=== PATIENT | male | born 1970 | race Caucasian/White ===

== ENCOUNTER → 2018-12-26 09:10 | Outpatient (CLI) | payer OTHER, SELFPAY ==
[2018-12-26 09:59] LABS: Absolute Lymphocyte Count 1.13 X10^3/ul (0.83-4.51); Absolute Neutrophil Count 2.9 X10^3/uL (2.0-7.7); Basophil# 0.01 X10^3/uL; Basophil% 0.2 % (0-1); Eosinophil# 0.06 X10^3/uL; Eosinophils% 1.3 % (0-5); Hemoglobin 16.3 g/dl (13.0-16.5); Lymphocyte # 1.13 X10^3/ul (4.0); Lymphocyte % 24.6 % (19-41); Mean Corpuscular Hgb 30.6 pg (27.0-32.0); Mean Corpuscular Volume 90.1 fL (80-94); Mean Platelet Vol. 9.2 fl (6.2-12.0); Monocyte% 10.9 % (0-10); Neutrophil # 2.89 X10^3/uL (2.7-7.7); Neutrophil % 62.8 % (47-70); Platelet Count 168 K/mm3 (150-450); RBC Distribution Width CV 12.4 % (11.6-14.6); RBC Distribution Width SD 40.5 fl (35.1-43.9); Red Blood Count 5.33 M/mm3 (4.6-6.2); White Blood Count 4.6 K/mm3 (4.4-11.0)
[2018-12-26 10:03] LABS: POSITIVE COUNT NO; POSITIVE DIFFERENTIAL NO; POSITIVE MORPHOLOGY NO
[2018-12-26 10:45] LABS: ALB/GLOB Ratio 1.2 RATIO (0.9-2.4); AST(SGOT) 28 U/L (15-37); Alanine Aminotransfer ALT/SGPT 37 U/L (16-61); Alkaline Phosphatase 77 U/L (45-117); Anion Gap 4 (5-15); BUN 11 mg/dL (7-18); BUN/Creat Ratio 9.6 RATIO (10-20); Calcium,Total 8.8 mg/dL (8.5-10.1); Chloride 105 mmol/L (98-107); Cholesterol 183 mg/dL (200); Creatinine, Serum 1.15 mg/dL (0.70-1.30); EST Glomerular Filtration Rate 72 mL/min (>60); Est Glom Filt Rate - Afr Amer 87 mL/min (>60); Free T3 2.2 pg/mL (2.18-3.98); Globulin 3.2 g/dL (2.2-4.2); Glucose 98 mg/dL (74-106); High Density Lipoprotein 47 mg/dL; Potassium 4.6 mmol/L (3.5-5.1); Protein, Total 7.2 g/dL (6.4-8.2); Sodium Level 138 mmol/L (136-145); T4 Free Direct 1.14 ng/dL (0.76-1.46); Thyroid Stim Hormone (TSH) 0.63 uIU/mL (0.358-3.74); Triglycerides 65 mg/dL; Very Low Density Lipoprotein 13 mg/dL (5-40)
== END ==
PROVIDERS: Family Provider Family Medicine; PCP Family Medicine; Referring Provider Family Medicine; Visit Provider Family Medicine
DX: K76.0 Fatty (change of) liver, not elsewhere classified (principal); E03.9 Hypothyroidism, unspecified
CPT/HCPCS: 36415; 80053; 80061; 84439; 84443; 84481; 85025

== ENCOUNTER → 2019-04-01 12:08 | Outpatient (CLI) | payer OTHER, SELFPAY ==
[2019-04-01 12:11] LABS: Lyme Ab Screen Interpretation REF LAB
[2019-04-01 13:14] LABS: Erythrocyte Sedimentation Rate 1 mm/hr (0-15)
[2019-04-01 13:39] LABS: PTHIN 74.4 pg/mL (18.4-80.1); Vitamin B12 525 pg/mL (211-911); Vitamin D,25 Hydroxy 36.3 ng/mL (29.95-100.01)
[2019-04-01 13:46] LABS: CRP < 2.90 mg/L (0.0-3.0); Ferritin 83 ng/mL (26-388); Rheumatoid Factor < 10.0 IU/mL (<15)
[2019-04-02 13:07] LABS: Anti-Centromere B Ab <0.2 AI (0.0-0.9); Anti-Chromatin <0.2 AI (0.0-0.9); Anti-Jo <0.2 AI (0.0-0.9); Anti-Scleroderma-70 AB 4.4 AI (0.0-0.9); RNP Ab 0.3 AI (0.0-0.9); SJOGREN'S Anti-SS-A test < 0.2 AI (0.0-0.9); SJOGREN'S Anti-SS-B test < 0.2 AI (0.0-0.9); Smith Ab <0.2 AI (0.0-0.9)
[2019-04-02 16:07] LABS: PROEL- A/G Ratio 1.4 (0.7-1.7); PROEL- Albumin 3.9 g/dL (2.9-4.4); PROEL- Alpha-1 Globulin 0.2 g/dL (0.0-0.4); PROEL- Alpha-2 Globulin 0.6 g/dL (0.4-1.0); PROEL- Globulin, Total 2.8 g/dL (2.2-3.9); PROEL- TOTAL PROTEIN 6.7 g/dL (6.0-8.5)
[2019-04-03 11:27] LABS: Lyme Scn Total Ab w/Rflx <0.91 ISR (0.00-0.90)
[2019-04-03 12:49] LABS: Anti-dsDNA Ab <1 IU/mL (0-9)
== END ==
PROVIDERS: Family Provider Family Medicine; PCP Family Medicine; Referring Provider Family Medicine; Visit Provider Family Medicine
DX: R76.8 Other specified abnormal immunological findings in serum (principal); R20.2 Paresthesia of skin; E55.9 Vitamin D deficiency, unspecified
CPT/HCPCS: 36415; 82306; 82607; 82728; 82746; 83970; 84165; 85652; 86140; 86225; 86235; 86431; 86618

== ENCOUNTER 2019-04-22 08:15 | Emergency (ER) | payer OTHER, SELFPAY ==
[2019-04-22 08:17] VITALS: BP 137/80; PULSE 74; RESP 16; TEMP 36.2; O2SAT 99; BMI 34.0
--- NOTE | 2019-04-22 08:32 | EKG12_ITS ---
Test Reason : CP Blood Pressure : / mmHG Vent. Rate : 070 BPM Atrial Rate : 070 BPM P-R Int : 188 ms QRS Dur : 088 ms QT Int : 364 ms P-R-T Axes : 045 040 016 degrees QTc Int : 393 ms Normal sinus rhythm Normal ECG Confirmed by ROMAN ORTEGA ([id number]), production editor CRUZ MACHADO ([id number]) on 04/23/2019 2:37:20 PM Referred By: KALLI Confirmed By:ROMAN ORTEGA
--- NOTE | 2019-04-22 08:32 | CT_ITS ---
STUDY: CTA CHEST REASON FOR EXAM: Male, 48 years old. One-day history of left upper chest pain. Diaphoresis. RADIATION DOSAGE (If Supplied By Facility): CTDIvol = ( 19.65 ) mGy, DLP = ( 502.92 ) mGycm TECHNIQUE: The examination was performed with the intravenous administration of 100mL IV Isovue 370. Post-processing of the angiographic images was performed, with multiplanar reformation and 3D reconstruction. Individualized dose optimization techniques were used for this CT. COMPARISON: Comparison is made with prior study dated March 26, 2014. FINDINGS: Normal enhancement of the main pulmonary artery and right and left pulmonary arteries. Normal enhancement of the bilateral peripheral pulmonary arteries. There is no demonstrated pulmonary embolism. Normal thoracic aorta and visualized great vessels. There is no demonstrated aortic dissection. Normal heart and pericardium. Normal mediastinum. Normal hilar regions. Normal visualized trachea and bronchi. The lungs are well expanded. Minimal increased markings at the lung bases suggestive of bibasilar atelectasis and/or scarring Normal pleura. Normal chest wall structures. Normal osseous structures. Normal visualized upper abdomen. CT/CTA Chest W/WO Contrast IMPRESSION: Normal CTA chest examination, without a demonstrated pulmonary embolism or arterial dissection. Electronically Signed: Austin Harvey, at 9:45 EDT , Service support ,
[2019-04-22 08:51] LABS: Absolute Lymphocyte Count 0.97 X10^3/uL (0.83-4.51); Absolute Neutrophil Count 2.4 X10^3/uL (2.0-7.7); Basophil# 0.02 X10^3/uL; Basophil% 0.5 % (0-1); Eosinophil# 0.06 X10^3/uL; Eosinophils% 1.5 % (0-5); Hematocrit 44.7 % (40-54); Hemoglobin 15.3 g/dL (13.0-16.5); Lymphocyte # 0.97 X10^3/ul (4.0); Lymphocyte % 24.4 % (19-41); Mean Corp Hgb Conc 34.2 g/dL (32-36); Mean Corpuscular Hgb 31.2 pg (27.0-32.0); Mean Corpuscular Volume 91.2 fL (80-94); Mean Platelet Vol. 8.7 fl (6.2-12.0); Monocyte# 0.47 X10^3/uL; Monocyte% 11.8 % (0-10); NRBC Flagged by Analyzer 0 % (0-5); Neutrophil # 2.44 X10^3/uL (2.7-7.7); Neutrophil % 61.5 % (47-70); Platelet Count 144 K/mm3 (150-450); RBC Distribution Width CV 12.2 % (11.6-14.6); RBC Distribution Width SD 40.2 fl (35.1-43.9)
[2019-04-22 09:10] LABS: Anion Gap 6 (5-15); BUN 15 mg/dL (7-18); BUN/Creat Ratio 12.1 RATIO (10-20); Calcium,Total 8.6 mg/dL (8.5-10.1); Chloride 109 mmol/L (98-107); Creatinine, Serum 1.24 mg/dL (0.70-1.30); EST Glomerular Filtration Rate 66 mL/min (>60); Est Glom Filt Rate - Afr Amer 80 mL/min (>60); Estimated Creatinine Clearance 72.85 ml/min; Glucose 118 mg/dL (74-106); Sodium Level 143 mmol/L (136-145)
[2019-04-22] MEDS: Aspirin 81 MG TAB.CHEW 162 MG PO (09:32)
[2019-04-22 09:34] VITALS: BP 120/80; PULSE 66; RESP 15; O2SAT 100
[2019-04-22 12:00] VITALS: BP 104/57; PULSE 61; RESP 16; O2SAT 98
--- NOTE | 2019-04-22 12:28 | ED.VISSUMM ---
- ER Visit Summary Date of Service: 04/22/19 Chief Complaint: Chest pain History of Present Illness: The patient is a 48 M with chest pain that started today. This is left-sided and radiates into his left arm and jaw. Worse with breathing. Associated with some sweats and nausea this morning. Patient never had this before. He had some pain and received a stress test years ago. This was unremarkable. His symptoms at that time were attributed to GERD. He is not having exertional symptoms. No history of ACS, PE, or dissection. He is being worked up for autoimmune diseases, scleroderma. He has a history of raynauds disease. Physical Examination: Afebrile and vital signs unremarkable. Patient is alert and oriented. In no acute distress. HEENT exam grossly unremarkable. Heart regular rate and rhythm. Lungs clear. Abdomen soft. Extremities nontender with no edema. Skin normal in color. Cranial nerves grossly intact. Moves all extremities. Test Results: EKG showed sinus rhythm rate of 70. No sign of acute ischemia or infarction pattern. White count 4.0 and platelets 144. He has had low white counts and platelets in the past. BMP unremarkable. Troponin normal. CTA was normal. No evidence of PE or aortic pathology. Emergency Department Course and Treatment: Patient seen on arrival. EKG as above. He was monitored. His work-up was unremarkable. With his history of autoimmune disease and radiation into his arm, I did obtain a CTA. His aorta was unremarkable. No PE. Patient declined pain medicine while awaiting results. He is low risk for ACS. He is appropriate for outpatient care. I did recheck his troponin at 3 hours which was unremarkable. No indication for hospitalization or inpatient stress testing. I am not sure what is causing the patient's pain. His work-up is unremarkable. He is low risk. He will need outpatient follow-up. He was advised to follow-up with his doctor. If he is unable or if he has new or worsening symptoms, he should return to the ED for admission and/or further care. Treatment Plan: As above Disposition: Discharge Impression: 1. Chest pain unclear etiology This note was generated with [employer] software. It may contain incorrect words, spelling, and punctuation that were not noted in review of the chart prior to signing ED Disposition - Plan for ED Patient: Referrals: Felix Kimble MD [Primary Care Provider] -
--- NOTE | 2019-04-22 12:32 | ED.DEP ---
ED Disposition - Plan for ED Patient: Instructions: CHEST PAIN, Uncertain Cause Referrals: Felix Kimble MD [Primary Care Provider] -
[2019-04-22 12:48] VITALS: BP 112/61; PULSE 63; RESP 16; O2SAT 97
== END 2019-04-22 12:49 | disposition home or self-care (01) ==
LOC: ED 08:37
PROVIDERS: Emergency Provider Emergency Medicine; Family Provider Family Medicine; PCP Family Medicine
DX: R07.9 Chest pain, unspecified (principal); I73.00 Raynaud's syndrome without gangrene; R11.0 Nausea; K21.9 Gastro-esophageal reflux disease without esophagitis; Z79.899 Other long term (current) drug therapy
CPT/HCPCS: 71275; 80048; 84484; 85025; 93005; 99285; Q9967; A4216

== ENCOUNTER 2019-06-17 08:32 | Day surgery (SDC) | payer OTHER, SELFPAY ==
[2019-06-10 14:32] VITALS: BMI 34.0
[2019-06-17] VITALS (7 sets, daily range): BP systolic 84–130; BP diastolic 55–94; PULSE 62–76; RESP 16; TEMP 36.3–37.2; O2SAT 95–100; BMI 34.6
[2019-06-17] MEDS: Lactated Ringers 1,000 ML 100 ML IV (09:43)
--- NOTE | 2019-06-17 09:45 | IMM_PTH ---
PATIENT: JOHANNY ESCAMILLA LOC: [facility] U#:[id number] AGE/SX: 48/M ROOM: RE06/17/[address]: Dr. Catrachito Gonzales MD : 1970 BED: DIS: 06/17/2019 SPEC #: [id number] RECD: 06/17/19 14:52 STATUS: SANKET REAngel #: [id number] BERTRAM: 06/17/19 09:[address]: Catrachito Gonzales DEPT: IMMUNOHISTOCHEMISTRY RECD BY: Francine Bhat ENTERED: 06/17/19 14:52 SP TYPE: IMMUNO OTHR DR: Dr. Felix Kimble MD Tissues: B - Stomach, NOS Procedures: H Pylori (initial) PHYSICIAN & INSTITUTION [place] [id number] SPECIMEN INFORMATION: Tissue Source: B - Antral biopsy Clinical Info: Black tarry stool Specimen Number: [id number] CPT code: 68741 METHODOLOGY: Deparaffinized sections of prefer/formalin-fixed tissue or PAP/DQ stained slides are incubated with monoclonal/polyclonal antibodies/oligonucleotide probes. Localization is made via biotin free immunoperoxidase method. Appropriate controls are performed and reacted as expected. Results on target cell population are indicated in the following table: RESULTS: ANTIBODY / CLONE RESULT Block B H Pylori (polyclonal) negative These tests were developed and their performance characteristics determined by [facility]. They may not have been cleared or approved by the U.S. Food and Drug Administration. The FDA has determined that such clearance or approval is not necessary. INTERPRETATION: B. Antral biopsy: Negative for Helicobacter pylori organisms. AM:dede 06/18/19
--- NOTE | 2019-06-17 09:45 | EGD_PTH ---
PATIENT: JOHANNY ESCAMILLA LOC: EN U#:[id number] AGE/SX: 48/M ROOM: RE06/17/[address]: Dr. Catrachito Gonzales MD : 1970 BED: DIS: 06/17/2019 SPEC #: [id number] RECD: 06/17/19 12:12 STATUS: SANKET KRYSTLE #: [id number] BERTRAM: 06/17/19 09:[address]: Catrachito Gonzales DEPT: SURGICAL PATHOLOGY RECD BY: Veronica Saavedra ENTERED: 06/17/19 14:13 SP TYPE: EGD BIOPSY OT DR: Dr. Felix Kimble MD Tissues: A - Duodenum, NOS B - Gastric mucous membrane C - Esophagus, NOS D - Esophagus, NOS Procedures: Special Stain Group II Surgery Specimen Level IV Alcian Blue/PAS (control) HEADER OPERATION: Colonoscopy, EGD ([facility] [place]) PRE-OP DIAGNOSIS: Black tarry stool TISSUE SUBMITTED: A. Duodenum biopsy, B. Antral biopsy for H. pylori and histo, C. Distal esophagus biopsy, D. Mid esophagus biopsy MICROSCOPIC DIAGNOSIS A. Duodenum, biopsy: No pathologic change. B. Gastric antrum, biopsy: Mild chronic gastritis. See comment. C. Distal esophagus, biopsy: Focal changes of reflux. Gastroesophageal junctional mucosa with chronic and focal acute inflammation. No evidence of goblet cell metaplasia. See comment. D. Mid esophagus, biopsy: Fragments of benign squamous mucosa. No evidence of inflammation. AM:dede 06/18/19 COMMENT B. The results of immunohistochemistry for Helicobacter pylori will be reported separately ([id number]). C. Alcian blue/PAS stain with matched control supports the above diagnosis. MICROSCOPIC DESCRIPTION Slides are reviewed. GROSS DESCRIPTION A - Received in fixative is one container labeled with the patient's name and designated duodenum biopsy. The specimen consists of one irregular fragment of light menchaca soft tissue that measures 0.4 x 0.3 x 0.1 cm. The specimen is totally submitted in one cassette. B - Received in fixative is one container labeled with the patient's name and designated antral biopsy. The specimen consists of one irregular fragment of light menchaca soft tissue that measures 0.6 x 0.2 x 0.1 cm. The specimen is totally submitted in one cassette. C - Received in fixative is one container labeled with the patient's name and designated distal esophagus biopsy. The specimen consists of multiple irregular fragments of light menchaca soft tissue that in aggregate measure 0.8 x 0.7 x 0.1 cm. The specimen is totally submitted in one cassette. D - Received in fixative is one container labeled with the patient's name and designated mid esophagus biopsy. The specimen consists of two irregular fragments of light menchaca soft tissue that in aggregate measure 0.4 x 0.3 x 0.1 cm. The specimen is totally submitted in one cassette. / SJ:dede 06/17/19 TC: 3 CPT: 72340 x4, 49638
--- NOTE | 2019-06-17 09:49 | HP.PCM_ITS ---
Problem List (1) Melena Status: Acute History and Physical Date of Admission: 06/17/19 Intake Visit Reasons: Rectal Fissue/Black tarry stool [employer] Person Required: No Is patient in pain?: No Allergies No Known Allergies Allergy (Verified 04/22/19 08:19) Medications Levothyroxine [Synthroid] 150 mcg PO DAILY 07/27/13 [History Confirmed 06/10/19] Selenium 200 mg PO DAILY 04/22/19 [History Confirmed 06/10/19] opjaeuz-ntcpsvfez-yuvl tablet tab PO tab 06/10/19 [History] iodine 150 mcg tablet mcg PO tab 06/10/19 [History Confirmed 06/10/19] lactobacillus combination no.8 3 billion cell capsule 3,000 mmu cells PO DAILY 06/10/19 [History Confirmed 06/10/19] PFSH Medical History Abdominal pain (Acute) Blood in stool (Acute) Thyroid disease (Acute) Surgical History Hx of wisdom tooth extraction (Acute) Hx of vasectomy (Acute) History of tonsillectomy and adenoidectomy (Acute) History of esophagogastroduodenoscopy (EGD) (Acute) Family History Mother Arthritis Lung cancer Father Hypertension Grandmother Colon cancer Social History (Updated 06/10/19 @ 16:59 by Catrachito Gonzales MD) Smoking Status: Never smoker second hand exposure: No alcohol intake: current alcohol intake frequency: a few times a week Alcohol type: beer substance use type: does not use caffeine: Yes what type of physical activity do you participate in: none frequency: does not exercise HPI HPI HPI: JOHANNY ESCAMILLA, is a 48 M who presents to the office today for HPI HPI Surgical H&P: Yes HPI: JOHANNY ESCAMILLA, is a 48 M who presents to the office today for surgical consultation regarding episode of black tarry stool. The patient was referred by his primary care physician Dr. Felix Kimble and a written copy of my surgical consult recommendations will return to him. The patient notes that for prolonged period of time he has had a tearing sensation in his anus that he correlates with a fissure but he has never had a endoscopy/sigmoidoscopy/colonoscopy. Occasionally he will have bright red rectal bleeding. He goes on to state that Dr. Lawson Leyva previously performed a total of 3 previous upper endoscopies on him. There was some concern visually that he had Powers's esophagus but the biopsies by patient report did not show that. The patient goes on to state that he was previously H. pylori positive. The patient then went on a much reduced gluten diet and took probiotics and subsequently was relieved of his GERD symptoms. He has not had a upper endoscopy now in quite a period of time. He contacted Dr. Felix Kimble because he had an episode of very dark tarry stool following a recent bowel movement. This occurred one occasion. He otherwise does not have any abdominal pain. No fever chills or sweats. He goes on to state that his maternal grandmother did have colon cancer. He states that his father had multiple polyps identified on serial colonoscopies. As of April 22, 2019 his BUN was 15 and creatinine 1.24. At that time his white count was 4 hemoglobin 15.3 hematocrit 44.7 platelet count 144,000 slightly low. In addition there is some concerned about Benji's phenomenon and possible polyarthralgia. There is some ongoing attention to that. ROS General General: No weight change, appetite, fatigue, colon cancer, breast cancer or weakness HEENT HEENT: No difficulty swallowing, eye injury, eye surgery, swollen glands or hoarseness Endo Endocrine: Yes thyroid disease; no diabetes mellitus, thyroid cancer, Hair loss, heat intolerance or cold intolerance Skin Skin: No rash or changing moles Cardio Cardiovascular: No murmur, pacemaker, heart disease, atrial fibrillation, high blood pressure, heart attack, heart stent, palpitations, shortness of breat with exertion or chest pain Psych Psychiatric: No depression, anxiety or hearing voices Resp Respiratory: No shortness of breath, No sleep apnea, No cough, No COPD, No asthma, No emphysema, No wheezing Gastro Gastrointestinal: Yes abdominal pain, No nausea or vomiting, No diarrhea, No constipation, Yes blood in stool, No acid reflux, No hemorrhoids, No ulcers, No gallbladder problem, Yes black,tarry stools (1 time last week) Marco Hematologic: No blood thinners, No blood disorders, No bleeding, No anemia, No blood clots Neuro Neurologic: No system reviewed and no additional complaints, except as docu, No as per HPI, No abnormal walking, No abnormal hearing, No abnormal movements, No abnormal speech, No behavioral changes, No burning sensations, No confusion, No seizure-like activity, No unsteadiness, No dizziness, No localized weakness, No frequent falls, No headache(s), No lack of coordination, No loss of vision, No memory loss, No numbness, No other visual disturbances, No radiating pain, No restless legs, No sensory deficit, No fainting, No tingling, No tremor(s), No weakness, No other Exam Const General: cooperative, healthy appearing, comfortable, no acute distress Nutritional Appearance: overweight Orientation: alert, awake HENTX Head: normal to inspection Chest Chest palpation & inspection: normal inspection of the chest Resp Effort & Inspection: normal respiratory effort Auscultation: clear to auscultation bilaterally Cardio Rate: regular rate Rhythm: regular rhythm Heart Sounds: no murmurs GI Palpation: soft, no hepatosplenomegaly Auscultation: normal bowel sounds Musc Cervical Spine: normal cervical lordosis Skin General: no rashes or lesions noted Neuro Cognition: normal cognition Extrem General: no calf tenderness bilaterally Psych Affect: normal affect Assessment & Plan Problems 1. Melena K92.1 Plan 48-year-old gentleman. He is not on any anticoagulants. Intermittently over the years he has had some bright red rectal bleeding with what he feels is possibly an anal fissure. Recently had a solitary episode of dark tarry stools. This was one episode. He otherwise is been doing his routine activities and work. He is not having any abdominal pain. I recommended the patient a combined esophagogastroduodenoscopy with possible biopsy as well as colonoscopy with possible biopsy or polypectomy as indicated. He had a past history of significant GERD and what was felt to be possible clinical Powers's the biopsies according to him did not show that. 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 There is a family history in his father of multiple colon polyps and a grandmother with col on cancer. He appears to be very hemodynamically stable currently. We will schedule and expedite his care. I very much appreciate the kind opportunity of assisting with the surgical care CC: Dr. Felix Gonzales M.D., F.A.C.S. Coding Level of Care Code 23023 Diagnoses Nubia [id number] 06/10/19 1659 <Electronically signed by Catrachito ware MD> Date _ Catrachito Gonzales MD I have re-examined the patient. There are no clinical changes since date of exam.
--- NOTE | 2019-06-17 10:25 | OP.ENDO_ITS ---
06/17/2019 Felix Kimble [address] [place] [address] Re : Upper GI endoscopy procedure for Geoffrey Curtis Dear Dr. Kimble This procedure was performed on Monday, June 17, 2019. My impressions and recommendations are as follows: Impressions : - LA Grade A reflux esophagitis. Biopsied. - Normal mid esophagus. Biopsied. - Erythematous mucosa in the antrum. Biopsied. - Normal examined duodenum. Biopsied. Recommendations : - Discharge patient to home. - Resume previous diet. - Continue present medications. - Use Prilosec (omeprazole) 20 mg PO daily. - Telephone my office for pathology results in 1 week. My findings are described in the full procedure note, which is enclosed. If I can be of further assistance, please feel free to contact me at Doctor phone number(s): Work: . Sincerely, Catrachito Gonzales MD 06/17/2019 10:25:16 AM This report has been signed electronically.
--- NOTE | 2019-06-17 10:28 | OP.ENDO_ITS ---
06/17/2019 Felix Kimble [address] [place] [address] Re : Colonoscopy procedure for Geoffrey Curtis Dear Dr. Kimble This procedure was performed on Monday, June 17, 2019. My impressions and recommendations are as follows: Impressions : - Non-thrombosed internal hemorrhoids and internal hemorrhoids that prolapse with straining, but spontaneously regress to the resting position (Grade II) found on digital rectal exam. - The entire examined colon is normal. - No specimens collected. Recommendations : - Discharge patient to home. - Resume previous diet. - Continue present medications. - Repeat colonoscopy in 10 years for screening purposes. Mild internal hemorrhoids likely source of intermittent BRRB. No evidence for fissure My findings are described in the full procedure note, which is enclosed. If I can be of further assistance, please feel free to contact me at Doctor phone number(s): Work: . Sincerely, Catrachito Gonzales MD 06/17/2019 10:28:06 AM This report has been signed electronically.
== END 2019-06-17 11:01 | disposition home or self-care (01) ==
LOC: EN 08:32 → AC 08:33
PROVIDERS: Family Provider Family Medicine; PCP Family Medicine; Referring Provider Family Medicine; Visit Provider Surgery
PROC: 0DJD8ZZ Inspection of Lower Intestinal Tract, Via Natural or Artificial Opening Endoscopic (ICD-10-PCS; CPT 45378; principal; 2019-06-17 09:40)
DX: K64.1 Second degree hemorrhoids (principal); K29.50 Unspecified chronic gastritis without bleeding; K92.1 Melena; E07.9 Disorder of thyroid, unspecified; Z79.899 Other long term (current) drug therapy; Z80.0 Family history of malignant neoplasm of digestive organs; K21.0 Gastro-esophageal reflux disease with esophagitis
CPT/HCPCS: 43239; 45378; 88305; 88313; 88342; J7120; J2405

== ENCOUNTER → 2019-07-28 14:39 | Outpatient (CLI) | payer OTHER, SELFPAY ==
[2019-06-17 09:14] VITALS: BMI 34.6
[2019-07-28 16:13] LABS: Absolute Neutrophil Count 3.3 X10^3/uL (2.0-7.7); Basophil# 0.03 X10^3/uL; Basophil% 0.6 % (0-1); Eosinophil# 0.09 X10^3/uL; Eosinophils% 1.7 % (0-5); Hematocrit 46.7 % (40-54); Hemoglobin 15.6 g/dL (13.0-16.5); Mean Corp Hgb Conc 33.4 g/dL (32-36); Mean Corpuscular Hgb 30.8 pg (27.0-32.0); Mean Corpuscular Volume 92.3 fL (80-94); Mean Platelet Vol. 8.8 fl (6.2-12.0); Monocyte# 0.58 X10^3/uL; Monocyte% 11.1 % (0-10); NRBC Flagged by Analyzer 0 % (0-5); Neutrophil % 63.2 % (47-70); Platelet Count 174 K/mm3 (150-450); RBC Distribution Width CV 11.9 % (11.6-14.6); Red Blood Count 5.06 M/mm3 (4.6-6.2); White Blood Count 5.2 K/mm3 (4.4-11.0)
[2019-07-28 16:24] LABS: Anion Gap 5 (5-15); BUN 15 mg/dL (7-18); BUN/Creat Ratio 12.3 RATIO (10-20); Calcium,Total 8.9 mg/dL (8.5-10.1); Chloride 106 mmol/L (98-107); Creatinine, Serum 1.22 mg/dL (0.70-1.30); EST Glomerular Filtration Rate 67 mL/min (>60); Est Glom Filt Rate - Afr Amer 81 mL/min (>60); Glucose 99 mg/dL (74-106); Potassium 4.4 mmol/L (3.5-5.1); Sodium Level 140 mmol/L (136-145)
== END ==
PROVIDERS: Family Provider Family Medicine; PCP Family Medicine; Referring Provider Physician Assistant Surgical; Visit Provider Physician Assistant Surgical
DX: Z01.818 Encounter for other preprocedural examination (principal)
CPT/HCPCS: 36415; 80048; 85025

== ENCOUNTER 2021-10-24 10:16 | Outpatient (CLI) | payer OTHER, SELFPAY ==
[2021-10-24 12:31] LABS: Vitamin D,25 Hydroxy 82.5 ng/mL
[2021-10-24 12:36] LABS: ALB/GLOB Ratio 1.2 RATIO (0.9-2.4); AST(SGOT) 24 U/L (15-37); Alanine Aminotransfer ALT/SGPT 36 U/L (16-61); Albumin, Serum 3.8 g/dL (3.2-5.0); Alkaline Phosphatase 72 U/L (45-117); Anion Gap 3 (5-15); BUN 17 mg/dL (7-18); BUN/Creat Ratio 13.9 RATIO (10-20); Calcium,Total 8.7 mg/dL (8.5-10.1); Chloride 107 mmol/L (98-107); Creatinine, Serum 1.22 mg/dL (0.70-1.30); EST Glomerular Filtration Rate 67 mL/min (>60); Est Glom Filt Rate - Afr Amer 81 mL/min (>60); Globulin 3.3 g/dL (2.2-4.2); Glucose 97 mg/dL (74-106); Potassium 4.3 mmol/L (3.5-5.1); Protein, Total 7.1 g/dL (6.4-8.2); Sodium Level 138 mmol/L (136-145); T4 Free Direct 1.13 ng/dL (0.76-1.46); Thyroid Stim Hormone (TSH) 0.63 uIU/mL (0.358-3.74)
== END 2021-10-24 23:59 | disposition home or self-care (01) ==
LOC: MTLAB 10:18
PROVIDERS: PCP Family Medicine; Referring Provider Family Medicine; Visit Provider Family Medicine
DX: E03.9 Hypothyroidism, unspecified (principal); E55.9 Vitamin D deficiency, unspecified; E66.9 Obesity, unspecified; R74.01 Elevation of levels of liver transaminase levels
CPT/HCPCS: 36415; 80053; 82306; 84439; 84443

== ENCOUNTER → 2022-12-26 | Outpatient (CLI) | payer OTHER, SELFPAY ==
[2022-12-26 12:40] LABS: Hematocrit 46.3 % (40-54); Hemoglobin 15.7 g/dL (13.0-16.5)
[2022-12-26 12:56] LABS: Vitamin D,25 Hydroxy 70.9 ng/mL
[2022-12-26 13:01] LABS: Alanine Aminotransfer ALT/SGPT 33 U/L (16-61); Creatinine, Serum 1.36 mg/dL (0.70-1.30); EST Glomerular Filtration Rate 58 mL/min (>60); Est Glom Filt Rate - Afr Amer 71 mL/min (>60); Free T3 2.3 pg/mL (2.18-3.98); Thyroid Stim Hormone (TSH) 0.85 uIU/mL (0.358-3.74)
== END | disposition home or self-care (01) ==
PROVIDERS: PCP Family Medicine; Referring Provider Family Medicine; Visit Provider Family Medicine
DX: E55.9 Vitamin D deficiency, unspecified (principal); E03.9 Hypothyroidism, unspecified; K76.0 Fatty (change of) liver, not elsewhere classified
CPT/HCPCS: 36415; 82247; 82306; 82565; 84443; 84460; 84481; 85014; 85018

== ENCOUNTER → 2023-10-15 | Outpatient (CLI) | payer OTHER, SELFPAY ==
--- NOTE | 2023-10-15 15:33 | RAD_ITS ---
EXAM: XR CHEST, 2 VIEWS CLINICAL INDICATION: cough, wheezing TECHNIQUE: Frontal and lateral views of the chest. COMPARISON: 09/13/2016 FINDINGS: LUNGS AND PLEURAL SPACES: No significant abnormality. No consolidation or edema. No pneumothorax. No effusion. HEART: No significant abnormality. Cardiac silhouette not enlarged. MEDIASTINUM: Central airways and mediastinal contour are unremarkable. BONES/JOINTS: Degenerative changes in the spine. No acute fracture. SOFT TISSUES: No significant abnormality. RAD/Chest PA and Lateral IMPRESSION: No acute findings in the chest. Electronically Signed: Jaime Allen DO at 23:54 EST ,
== END | disposition home or self-care (01) ==
LOC: MTRAD 15:32
PROVIDERS: PCP Family Medicine; Referring Provider Nurse Practitioner Family; Visit Provider Nurse Practitioner Family
DX: R05.9 Cough, unspecified (principal)
CPT/HCPCS: 71046

== ENCOUNTER → 2025-03-05 | Outpatient (CLI) | payer SELFPAY ==
--- OUTSIDE RECORDS SUMMARY | 2025-03-05 11:17 | XMS RPT_ITS | CCD ---
Author Organization [facility] Care Team Providers Care Software Quality Manager Name Role Phone Felix Kimble Primary Care Unavailable Referred, Self Referring Unavailable Referred, Self Attending Unavailable Florida Moore Attending Unavailable Felix Kimble Primary Care Unavailable Florida Moore Referring Unavailable Unavailable Primary Care Provider Unavailabl e Medications Current Medications Medication Drug Class(es) Dates Sig (Normalized) Sig (Original) cephalexin 500 mg oral capsule (1 source) Cephalosporin Antibacterial Start: 01-27-2025 End: 02-03-2025 take 1 capsule by mouth three times daily cephALEXin (KEFLEX) 500 mg capsule Take 1 capsule by mouth three times a day for 7 days. 21 capsule 01/27/2025 02/03/2025 Active Problems Active Problems Problem Classification Problem Date Documented Da te Episodic/Chronic Abdominal pain (1 source) Epigastric pain; Translations: [Epigastric pain] 03-22-2010 Episodic Unclassified (1 source) Cough, unspecified; Translations: [Cough, unspecified] Onset: 10-18-2023 Past or Other Problems Problem Classification Problem Date Documented Date Episodic/Chronic Abdominal hernia (1 source) Diaphragmatic hernia; Translations: [Diaphragmatic hernia without obstruction or gangrene] Onset: 01-27-2011 01-27-2011 Episodic Esophageal disorders (1 source) Esophagitis; Translations: [Esophagitis, unspecified] Onset: 05-24-2010 05-24-2010 Episodic Gastritis and duodenitis (1 source) Acute gastritis; Translations: [Acute gastritis without bleeding] Onset: 05-24-2010 05-24-2010 Episodic Immunizations and screening for infectious disease (1 source) Raised Helicobacter pylori antibody; Translations: [Other specified abnormal immunological findings in serum] Onset: 03-22-2010 03-22-2010 Episodic Results Test Name Value Interpretation Reference Range Facil ity Chest PA and Lateralon 10-15 Chest PA and Lateral [facility] [address] [place] [address] Chest PA and Lateral MR#: [id number] Acct: [id number] Name: JOHANNY ESCAMILLA Rep #: [id number] : 1970 M 53 From: Jaime Labru jassi PCP: Dr. Felix Kimble MD Status: REG CLI Study: Chest PA and Lateral Date of Exam: 10/15/23 Exam# [id number] Ordering Dr: Florida Moore NAIL PULLER-Rach [id number] EXAM: XR CHEST, 2 VIEWS CLINICAL INDICATION: cough, wheezing TECHNIQUE: Frontal and lateral views of the chest. COMPARISON: 09/13/2016 FINDINGS: LUNGS AND PLEURAL SPACES: No significant abnormality. No consolidation or edema. No pneumothorax. No effusion. HEART: No significant abnormality. Cardiac silhouette not enlarged. MEDIASTINUM: Central airways and mediastinal contour are unremarkable. BONES/JOINTS: Degenerative changes in the spine. No acute fracture. SOFT TISSUES: No significant abnormality. RAD/Chest PA and Lateral IMPRESSION: No acute findings in the chest. Electronically Signed: Jaime Allen DO at 23:54 EST , CC: DEBBY Moore; Dr. Felix Kimble MD Textile Artist: Signed Normal [facility] Encounters Encounter Date Encounter Type Care Provider Facility Start: 01-27-2025 End: 01-27-2025 Refrojas Inman DO Work Phone: [facility] Start: 09-22-2024 ambulatory Felix Kimble Facility:[facility] Start: 10-15-2023 End: 10-15-2023 ambulatory Florida Moore Facility:[facility] Plan of Treatment Date Care Activity Detail Author Start: 05-18-2025 Influenza vaccination Influenz a Vaccine (Season Ended) [facility] Start: 05-18-2024 Covid-19 Vaccine ( season) Covid-19 Vaccine ( - season) [facility] Start: 2020 Pneumococcal Vaccine : 50+ (1 of 1 - PCV) Pneumococcal Vaccine: 50+ (1 of 1 - PCV) [facility] Start: 2020 Shingrix Vaccine (1 of 2) Shingrix V accine (1 of 2) [facility] Start: 2015 Diabetes Screening Diabetes Screenin g [facility] Start: 2015 Screening for malign ant neoplasm of colon [facility] Start: 2005 Lipid panel Lipid Screening [facility] Start: 1989 Hepatitis B Vaccine (1 of 3 - 19+ 3-dose series) Hepatitis B Vaccine (1 of 3 - 19+ 3-dose series) [facility] Start: 1989 Urine microalbumin profile DTaP,Tdap,Td Vaccine (1 - Tdap) [facility] Start: 1988 Anxiety Screening Anxiety Screening [facility] Start: 1988 Depression Screening Depression Scre ening [facility] Start: 1988 Hepatitis C screening Hepatitis C Sc reening [facility] Start: 1988 HIV screening HIV Screening [facility] Payers Date Payer Category Payer Self-pay 2023 Unknown [id number] Unknown [id number] Unknown [id number] Social History Date Type Detail Facility Start: 12-08-2011 [facility] Work Phone: Start: 12-08-2011 Tobacco use and exposure Smokeless tobacco non-user [facility] Start: 07-09-2012 Alcoholic beverage intake Current non-drinker of alcohol (finding) [facility] Start: 1970 Sex assigned at Not on file [facility] Gender identity Not on file [facility] inic Summary Purpose Family History No Family History Records Found Advance Directives No Advanced Directives Records Found Additional Source Comments (unrecognized sect ion and content) No Status Records Found INFORMATION SOURCE (unrecogn ized section and content) DATE CREATED AUTHOR 09/28/2024 [facility] Source Comments (unrecognize d section and content) In the event this informatio n is protected by the Federal Confidentiality of Alcohol and Drug Abuse Patient Records regulations: The Federal rules restrict any use of the information to criminally investigate or prosecute any alcohol or drug abuse patient.[facility] FOR RECORDS PERTAINING TO PATIENTS WHO ARE OR HAVE BEEN ENROLLED IN A CHEMICAL DEPENDENCY/SUBSTANCEABUSE PROGRAM, SOME INFORMATION MAY BE OMITTED. This clinical summary was aggregated from multiple sources. Caution should be exercised in using it in the provision of clinical care. This summary normalizes information from multiple sources, and as a consequence, information in this document may materially change the coding, format and clinical context of patient data. In addition, data may be omitted in some cases. CLINICAL DECISIONS SHOULD BE BASED ON THE PRIMARY CLINICAL RECORDS. [employer] [facility]. provides no warranty or guarantee of the accuracy or completeness of information in this document.
[2025-03-11 09:09] LABS: Testosterone, % Free 4.22 % (1.50-4.20); Testosterone, Free 15.02 ng/dL (5.00-21.00); Testosterone, Total 356 ng/dL (264-916)
== END | disposition home or self-care (01) ==
LOC: MTLAB 10:26
PROVIDERS: PCP Family Medicine; Referring Provider Family Medicine; Visit Provider Family Medicine
DX: E03.9 Hypothyroidism, unspecified (principal); E66.9 Obesity, unspecified
CPT/HCPCS: 84402; 84403; 84443